=== PATIENT | female | born 1955 | race Caucasian/White ===

== ENCOUNTER 2016-07-05 10:08 | Emergency (ER) | payer OTHER ==
[~2016-07-05] VITALS: Ht 170.2 cm; Wt 74.4 kg
[2016-07-05 10:10] VITALS: BP 154/97; PULSE 75; RESP 16; TEMP 98.5; O2SAT 100
[2016-07-05] MEDS ORDERED: LISI-515 PO (10:24)
[2016-07-05] MEDS ORDERED: ASPI81CH CHEW (10:24)
[2016-07-05] MEDS ORDERED: LEXA10TA PO (10:24)
[2016-07-05] MEDS ORDERED: BUPIVACAINE HCL PF 0.5% 10 ML VIAL NERV BLOCK ONE (11:15)
[2016-07-05] MEDS ORDERED: TETANUS/DIPHTHERIA TOXOID ADULT 0.5 ML VIAL IM ONE (11:15)
[2016-07-05] MEDS ORDERED: LIDOCAINE HCL 1% 50 ML VIAL INFIL ONE (11:15)
--- NOTE | 2016-07-05 11:41 | RADHPO ---
EXAM DATE/TIME: 07/05/2016 11:14 [place] COMPARISON: No previous studies available for comparison. INDICATIONS : Left hand, third digit pain. Patient states a needle went through the tip of her th ird digit. MEDICAL HISTORY : None. SURGICAL HISTORY : None. ENCOUNTER: Initial ACUITY: 1 day PAIN SCORE: 2/10 LOCATION: Left third digit. FINDINGS: 3 views of the left hand demonstrate a metallic foreign body traversing the distal phalanx of the lit tle finger. No associated fracture seen. CONCLUSION: 6 mm metallic foreign body traversing the distal phalanx of the little finger. No vis ible fracture. Anh Hopper MD on July 05, 2016 at 11:38 Board Certified Radiologist. This report was verified electronically.
--- NOTE | 2016-07-05 11:52 | PD ---
HPI Chief Complaint: Laceration/Skin Injury Time Seen by Provider: 11:46 Travel History International Travel<30 days: No Contact w/Intl Traveler<30days: No Traveled to known affect area: No History of Present Illness HPI 61-year-old female presents to the emergency room for evaluation of foreign body to her left third finger that occurred just prior to arrival. Patient was using an embroidery machine when her finger got caught under the needle and the needle snapped off. Patient believes there is a 1 cm foreign body retained inside of her finger but it did not come out the other side. Minimal to moderate pain worse with range of motion. Last tetanus is greater than 10 years ago. PFSH Past Medical History Depression: Yes Cardiovascular Problems: Yes (htn on meds) Hypertension: Yes Tetanus Vaccination: > 5 Years Influenza Vaccination: No ?: Not Tubal Ligation: Yes Social History Alcohol Use: Yes Tobacco Use: No Substance Use: No Allergies-Medications (Allergen,Severity, Reaction): Coded Allergies: No Known Allergies (Unverified , 07/05/16) Reported Meds & Prescriptions Reported Meds & Active Scripts Active [place] (Hydrocodone-Acetaminophen) 5-325 mg Tab 1 Tab PO Q6H PRN Keflex (Cephalexin) 500 Mg Cap 500 Mg PO Q6H 10 Days Reported Aspirin 81 Mg Chew 81 Mg CHEW DAILY Lexapro (Escitalopram Oxalate) 10 Mg Tab 10 Mg PO DAILY Lisinopril 20 Mg Tab 20 Mg PO DAILY Review of Systems Except as stated in HPI: all other systems reviewed are Neg Physical Exam Narrative GENERAL: Well-nourished, well-developed female in no acute distress. Afebrile. Ambulatory. SKIN: Warm and dry. There is a small hole through the left third fingernail. There is no exit wound. Distal phalanx is tender to palpation. No obvious foreign body. Less than 2 second capillary refill distally. HEAD: Normocephalic. EYES: No scleral icterus. No injection or drainage. Data Data Last Documented VS Vital Signs Date Time Temp Pulse Resp B/P Pulse Ox O2 Delivery O2 Flow Rate FiO2 07/05/16 10:10 98.5 75 16 154/97 100 Orders Bupivacaine Pf 0.5% Inj (Marcaine Pf 0.5 (07/05/16 11:15) Lidocaine 1% Inj (50 Ml) (Xylocaine 1% I (07/05/16 11:15) Tetanus/Diphtheria Tox Adult (Tetanus/Di (07/05/16 11:15) Finger ([id number]) (07/05/16 11:10) MDM Medical Decision Making Medical Screen Exam Complete: Yes Emergency Medical Condition: Yes Medical Record Reviewed: Yes Differential Diagnosis Foreign body versus fracture versus cellulitis Narrative Course 61-year-old female presents to the emergency room for evaluation of foreign body to her left third finger that occurred prior to arrival. Patient accidentally stuck herself with a sewing needle which broke off underneath her skin. Last tetanus was greater than 10 years ago. Physical exam reveals a small hole on the left third nail without exit wound. Distal phalanx is tender to palpation. No obvious foreign body. Less than 2 second capillary refill distally. X-ray shows 6 mm retained foreign body. Tetanus was updated. Foreign body was removed, see alternate provider note for details. Patient discharged with Keflex and Lortab. Told to follow-up with primary care physician or return to the emergency room for worsening symptoms. She understands and agrees to this plan. Diagnosis Primary Impression: Soft tissues foreign body Referrals: Primary Care Physician Patient Instructions: General Instructions, Soft Tissue Foreign Body (ED) Additional Instructions: Keep area clean and dry. Apply triple antibiotic ointment. It will take several weeks to months to grow out. Take Keflex as directed, until gone. Take [place] as directed, as needed for pain. Do not drink alcohol or drive while taking this medication. Follow-up with PCP. Return for worsening symptoms. Med/Other Pt SpecificInfo: Prescription(s) given Scripts Hydrocodone-Acetaminophen ([place])5-325 mg Tab1 Tab PO Q6H PRN (PAIN) #12 TAB Ref 0 Prov:Kadeem Marie MD 07/05/16 Cephalexin (Keflex)500 Mg [id number] Mg PO Q6H 10 Days Ref 0 Prov:Kadeem Marie MD 07/05/16 Disposition: 01 DISCHARGE HOME Condition: Stable Mayra Belle Jul 05, 2016 11:52
[2016-07-05] MEDS ORDERED: NORC5TAB PO (11:54)
[2016-07-05] MEDS ORDERED: CEPH-460 PO (11:54)
--- NOTE | 2016-07-05 11:55 | PD ---
Physical Exam Narrative Patient was seen with my automobile mechanic assistant. Data Data Last Documented VS Vital Signs Date Time Temp Pulse Resp B/P Pulse Ox O2 Delivery O2 Flow Rate FiO2 07/05/16 10:10 98.5 75 16 154/97 100 Orders Bupivacaine Pf 0.5% Inj (Marcaine Pf 0.5 (07/05/16 11:15) Lidocaine 1% Inj (50 Ml) (Xylocaine 1% I (07/05/16 11:15) Tetanus/Diphtheria Tox Adult (Tetanus/Di (07/05/16 11:15) Finger ([id number]) (07/05/16 11:10) MDM Supervised Visit with OMER: Yes Procedures Procedure Narrative 1% lidocaine and 0.5% Marcaine digital block left third digit. Hand-held cautery was used to remove partial of the fingernail of the left third finger. The broken needle was detected sticking out of the nailbed. The broken needle was removed with hemostats. Polysporin ointment with dressing applied. Disposition: 01 DISCHARGE HOME Condition: Stable Kadeem Marie MD Jul 05, 2016 11:55
== END 2016-07-05 12:09 | disposition home or self-care (01) ==
LOC: PHEFT 10:08
DX: S61.241A Puncture wound with foreign body of left index finger without damage to nail, initial encounter (principal); I10 Essential (primary) hypertension; Z23 Encounter for immunization; F10.10 Alcohol abuse, uncomplicated; W27.3XXA Contact with needle (sewing), initial encounter; W45.8XXA Other foreign body or object entering through skin, initial encounter; Y93.D2 Activity, sewing; Y92.9 Unspecified place or not applicable; Y99.9 Unspecified external cause status
CPT/HCPCS: 11730; 73140; 90471; 90714